=== PATIENT | female | born 1955 | race African-American/Black ===

== ENCOUNTER 2017-08-30 09:14 | Emergency (ER) | payer BC ==
[2017-08-30 10:32] LABS: CREATININE - SERUM 0.8 mg/dL (0.6-1.2)
[2017-08-30] MEDS ORDERED: IOHEXOL 300mgI/mL 100 ML VIAL PO ONE (10:43)
--- NOTE | 2017-08-30 11:07 | ED Physician Chart ---
ED Chief Complaint/HPI - Patient Information Date Seen:: 08/30/17 Time Seen:: 09:25 Chief Complaint:: Neck Fullness History of Present Illness:: onset x 3 weeks of intermittent fullness feeling in pt's neck; pt denies trauma , LOC, ALOC, AMS, N/V, decreased activity, visual or gait changes, weakness, dizziness, paresthesias, vertigo, H/As, neck pain, cough, C/P, SOB, Abd. Pain, A /N/V/D/c, fever, chills, or urinary s/s; pt is 15 years post-menopausal; pt denies ; pt's last tetanus shot: < 5 years; UTD Allergies:: Allergies Allergy/AdvReac Type Severity Reaction Status Date / Time No Known Allergies Allergy Verified 05/14/16 10:32 Vitals:: Vital Signs - 8 hr 08/30/17 09:26 Temp 96.2 F HR 84 RR 16 BP 130/72 O2 Sat % 98 Historian:: Patient Review:: Nurse's Note Reviewed ED Review of Systems - Review of Systems General/Constitutional: No fever, No chills, No weight loss, No weakness, No diaphoresis, No edema, No loss of appetite Skin: No skin lesions, No rash, No bruising Head: No headache, No light-headedness Eyes: No loss of vision, No pain, No diplopia ENT: No earache, No nasal drainage, No sore throat, No tinnitus Neck: No neck pain, No swelling, No thyromegaly, No stiffness, No mass noted Cardio Vascular: No chest pain, No palpitations, No PND, No orthopnea, No edema Pulmonary: No SOB, No cough, No sputum, No wheezing GI: No nausea, No vomiting, No diarrhea, No pain, No melena, No hematochezia, No constipation, No hematemesis G/U: No dysuria, No frequency, No hematuria, No nacturia 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, No abnormal vaginal bleed, No contraction Musculoskeletal: No bone or joint pain, No back pain, No muscle pain Endocrine: No polyuria, No polydipsia Psychiatric: No prior psych history, No depression, No anxiety, No suicidal ideation, No homicidal ideation, No auditory hallucination, No visual hallucination Hematopoietic: No bruising, No lymphadenopathy Allergic/Immuno: No urticaria, No angioedema Neurological: No syncope, No focal symptoms, No weakness, No paresthesia, No headache, No seizure, No dizziness, No confusion, No vertigo ED Past Medical History - Past Medical History Obtainable: Yes Past Medical History: HTN Family History: HTN Social History: Non Smoker, No Alcohol, No Drug Use, Psychiatricy History: None Medication: Reviewed Family Medical History - Family Member Mother History Unknown: Yes Ethnicity: Non- Hx Family Hypertension: Yes Father Age: 50 Living Status: Other Medical History: Liver Cirrhosis ED Physical Exam - Physical Examination General/Constitutional: Awake, Well-developed, well-nourished, Alert, No distress, GCS 15, Non-toxic appearing, Ambulatory Head: Atraumatic Eyes: Lids, conjuctiva normal, PERRL, EOMI Skin: Nl inspection, No rash, No skin lesions, No ecchymosis, Well hydrated, No lymphadenopathy ENMT: External ears, nose nl, TM canals nl, Nasal exam nl, Lips, teeth, gums nl , Oropharynx nl, Tonsils nl Neck: Nontender, Full ROM w/o pain, No JVD, No nuchal rigidity, No bruit, No mass, No stridor Other Neck comments:: supple; no meningeal signs; no cervical tenderness; no bruits Respiratory: Nl effort/Exclusion, Clear to Auscultation, No Wheeze/Rhonchi/Rales Cardio Vascular: RRR, No murmur, gallop, rubs, NL S1 S2, Carotid/Femoral/Distal pulses equal bilaterally GI: No tenderness/rebounding/guarding, No organomegaly, No hernia, Normal BS's, Nondistended, No mass/bruits, No McBurney tenderness, Rectum exam nl Other GI comments:: no pulsatile masses : No CVA tenderness Extremities: No tenderness or effusion, Full ROM, normal strength in all extremities, No edema, Normal digits & nails Neuro/Psych: Alert/oriented, DTR's symmetric, Normal sensory exam, Normal motor strength, Judgement/insight normal, Mood normal, Normal gait, No focal deficits Misc: Normal back, No paraspinal tenderness ED Labs/Radiology/EKG Results - Lab Results Results: Laboratory Tests 08/30/17 10:10 BUN 15 Creatinine 0.8 - Radiology Results Comments:: Postoperative changes multiple metallic clips inferior portion of the left lobe of thyroid gland might be due to partial resection; otherwise unremarkable examination of the neck ED Septic Shock - . Is Septic Shock (SBP<90, OR Lactate>4 mmol\L) present?: No - <6hrs of presentation: Vital Signs: Vital Signs - 8 hr 08/30/17 09:26 Temp 96.2 F HR 84 RR 16 BP 130/72 O2 Sat % 98 ED Reassessment (Disposition) - Reassessment Reassessment:: pt is asymptomatic upon discharge Reassessment Condition:: Improved - Diagnosis Diagnosis:: Neck Pain; ? Neck Mass; Cervical Strain; Sprains and Strains - Aftercare/Follow up Instructions Aftercare/Follow-Up Instructions:: Counseled pt regarding lab results/diagnosis & need follow up, Refer to Discharge Instructions, Counseled pt & family regarding lab results/diagnosis & need follow up - Patient Disposition Discharge/Transfer:: Against Medical Advice Condition at Disposition:: Stable, Improved (RTER prn if existing s/s reoccur and/or get worse and/or any other new s/s occur; X-Rays Instructions; ACIs given for all above Dx; Refer to Spinal Specialist/Endocrine Surgeon/[place] [facility]; F/U with PMD in one day or prn; X-Rays Instructiions; RTER prn if concerned) ED Discharge Plan - Patient Disposition Admit/Discharge/Transfer: AGAINST MEDICAL ADVICE Condition at Disposition: Unchanged
--- NOTE | 2017-08-30 12:42 | Diagnostic Imaging Report ---
Exam: CT examination of the neck HISTORY: Neck mass Total DLP equals 33 CTDI equals 15.4 Findings: Multiple contiguous thin section of the neck were obtained from base of skull to thoracic outlet with administration intravenous contrast material no prior studies available for comparison. The study demonstrates a normal enhancement of the great vessels of the neck. There is evidence of postsurgical changes in the left lobe of thyroid gland. Multiple metallic clips are noted. Normal enhancement of vascular structures appreciated. The salivary glands intact. There is normal appearance of the upper portion of the neck, the vallecula and piriform sinuses are normal. There is no evidence for abnormal lymphadenopathy. The upper airways are patent. The visualized the maxilla and mandible are intact. Large amount of metallic dentures noted. IMPRESSION: Postoperative changes multiple metallic clips inferior portion of the left lobe of thyroid gland might be due to partial resection Otherwise unremarkable examination of the neck.
== END 2017-08-30 12:25 | disposition left against medical advice (07) ==
LOC: ER 09:14
DX: S16.1XXA Strain of muscle, fascia and tendon at neck level, initial encounter (principal); I10 Essential (primary) hypertension; X58.XXXA Exposure to other specified factors, initial encounter; Y93.89 Activity, other specified; Y92.89 Other specified places as the place of occurrence of the external cause; Y99.8 Other external cause status
CPT/HCPCS: 36415-UA; 70491-TC; 82565-TC; 84520-TC; Q9967